=== PATIENT | female | born 1960 | race Two or more races ===

== ENCOUNTER 2024-05-17 15:20 | Emergency (ER) | payer MEDICAID ==
[~2024-05-17] VITALS: Ht 152.4 cm; Wt 63.6 kg
[2024-05-17 15:25] VITALS: BP 121/66; PULSE 58; RESP 18; TEMP 97.8; O2SAT 95
[2024-05-17] MEDS ORDERED: HYDR-4400 PO (15:47)
[2024-05-17] MEDS ORDERED: CLOP-31 PO (15:47)
[2024-05-17] MEDS ORDERED: LEVO125T95 PO (15:47)
[2024-05-17] MEDS ORDERED: DOXY75CA5 PO (15:47)
[2024-05-17] MEDS ORDERED: FOLI1TAB85 PO (15:47)
[2024-05-17] MEDS ORDERED: PREG50CA64 PO (15:47)
[2024-05-17] MEDS ORDERED: TORS100T16 PO (15:47)
[2024-05-17] MEDS ORDERED: ATOR-2 PO (15:47)
[2024-05-17] MEDS ORDERED: PREG25CA19 PO (15:47)
[2024-05-17 17:00] LABS: GLUCOMETER DEV NAME(LOC) ERT.6; GLUCOSE,POINT OF CARE 87 MG/DL (70-110)
== END 2024-05-17 17:56 | disposition home or self-care (01) ==
LOC: EMS 15:20
DX: L76.21 Postprocedural hemorrhage of skin and subcutaneous tissue following a dermatologic procedure (principal); E11.9 Type 2 diabetes mellitus without complications; Z98.890 Other specified postprocedural states
CPT/HCPCS: 82962; 99282